=== PATIENT | male | born 1960 ===

== ENCOUNTER 2024-02-20 09:20 | Outpatient (REF) | payer MEDICAID, SELFPAY ==
[2024-02-20 11:16] LABS: MANUAL DIFF FLAG NO
[2024-02-20 11:25] LABS: Basophils Absolute Auto 0.1 X10*3/uL (0.0-0.2); Basophils Percent Auto 1.1 % (0-2); Eosinophils Absolute Auto 0.3 X10*3/uL (0.0-0.4); Hematocrit 40.7 % (42.0-52.0); Hemoglobin 13.3 g/dl (14.0-18.0); Imm Gran Abs Auto 0.02 X10*3/uL (0.00-0.03); Imm Gran Pct Auto 0.3 % (0.0-0.4); Lymphocytes Absolute Auto 1.6 X10*3/uL (1.2-4.9); Lymphocytes Percent Auto 25.6 % (20-40); Mean Corpuscular HGB Conc 32.7 g/dl (31.0-36.0); Mean Corpuscular Hemoglobin 26.7 pg (27.0-33.0); Mean Corpuscular Volume 81.7 fL (80.0-98.0); Mean Platelet Volume 10.5 fL (9.4-12.4); Monocytes Absolute Auto 0.5 X10*3/uL (0.1-1.2); Monocytes Percent Auto 8.1 % (2-11); Neutrophils Absolute Auto 3.8 x10*3/uL (2.0-8.3); Neutrophils Percent Auto 60.9 % (45-73); Platelet Count 541 X10*3/uL (160-400); Red Blood Count 4.98 X10*6/uL (4.60-5.80); Red Cell Distribution Width 15.5 % (11.0-16.0); White Blood Count 6.3 X10*3/uL (4.8-10.8)
[2024-02-20 11:42] LABS: Rheumatoid Factor < 13.0 IU/mL (<15.0)
[2024-02-20 11:45] LABS: Alanine Aminotransferase 67 U/L (0-40); Albumin Level 2.5 g/dL (3.5-5.0); Alkaline Phosphatase 171 U/L (39-117); Anion Gap 10 (12-20); Aspartate Amino Transferase 82 U/L (5-37); Bilirubin Direct 0.1 mg/dL (0.0-0.5); Bilirubin Total 0.3 mg/dL (0.0-1.0); Blood Urea Nitrogen 31 mg/dL (9-16); C Reactive Protein 0.61 mg/dL (< or = 0.50); Calcium 9.4 mg/dL (8.4-10.2); Carbon Dioxide 29 mmol/L (22-29); Chloride 104 mmol/L (96-108); Cholesterol 394 mg/dL (<200); Estimated Glomerular Filt Rate 50; Glucose Random 81 mg/dL (60-115); HDL Cholesterol 22 mg/dL (>40); LDL Cholesterol Calculated 295 mg/dL (<100); Potassium 4.3 mmol/L (3.3-5.1); Sodium 139 mmol/L (135-145); Total Protein 5.8 g/dL (6.5-8.0); Triglycerides 387 mg/dL (<150)
[2024-02-20 11:58] LABS: HIV AB/AG Nonreactive (Nonreactive); HIV Num 1 0.09 S/CO (0.00-0.99); ~HepC Num1 0.08 S/CO (0.00-0.79); ~Hepatitis C Antibody Nonreactive (Nonreactive)
[2024-02-20 12:03] LABS: Erythrocyte Sedimentation Rate 80 MM/HR (0-15)
[2024-02-20 12:04] LABS: TSH reflex Free T4 2.88 uIU/mL (0.32-4.0)
[2024-02-20 12:17] LABS: Folate 12.2 ng/mL (> or = 4.0); Vitamin B12 396 pg/mL (200-900)
[2024-02-21 16:54] LABS: Homocysteine 18.2 umol/L (<11.4)
[2024-02-22 12:03] LABS: Anti Nuclear Antibody Screen NEGATIVE (NEGATIVE)
[2024-02-24 15:09] LABS: Methylmalonic Acid 551 nmol/L (87-318)
== END 2024-02-20 09:21 | disposition home or self-care (01) ==
LOC: HO.HHCL 09:20
PROVIDERS: Visit Provider Internal Medicine
DX: Z11.4 Encounter for screening for human immunodeficiency virus [HIV] (principal); Z13.6 Encounter for screening for cardiovascular disorders; M79.2 Neuralgia and neuritis, unspecified
CPT/HCPCS: 36415; 80048; 80061; 80076; 82607; 82746; 83090; 83921; 84443; 85025; 85652; 86038; 86140; 86431; 86803; 87389

== ENCOUNTER 2024-02-24 12:22 | Outpatient (REF) | payer MEDICAID, SELFPAY ==
[2024-02-24 14:45] LABS: Iron 39 mcg/dL (45-160); Percent Iron Saturation 22 % (15-50); Total Iron Binding Capacity 177 mcg/dL (228-428); Unsaturated Iron Binding 138 ug/dL
[2024-02-24 14:47] LABS: Ferritin 829 ng/mL (20-250)
[2024-02-24 14:52] LABS: Vitamin B12 424 pg/mL (200-900)
[2024-02-28 13:33] LABS: Methylmalonic Acid 593 nmol/L (87-318)
== END 2024-02-24 12:23 | disposition home or self-care (01) ==
LOC: HO.HHCL 12:22
PROVIDERS: Visit Provider Internal Medicine
DX: D64.9 Anemia, unspecified (principal); E53.8 Deficiency of other specified B group vitamins
CPT/HCPCS: 36415; 82607; 82728; 82746; 83090; 83540; 83921

== ENCOUNTER 2024-03-07 14:20 | Outpatient (AMB) | payer MEDICAID, SELFPAY ==
--- NOTE | 2024-03-07 14:22 | HO.NEPHOV_ITS ---
HPI HPI Comments History of Present Illness Details 63 year old man with history of hyperten heather was recently hospitalized at [facility]. He had urinary retention and a Leija catheter was inserted. He has had Leija catheter for the last 3 weeks. He has been referred for chronic kidney disease. Recent creatinine was 1.4. Upon reviewing the labs his baseline is close to 1.4. He has a history of hypertension. He has been on lisinopril 30 mg and verapamil 240 mg. He was accompanied by his daughter today. Daughter tells me that she has not given the blood pressure medications for the last 3 days since his blood pressure has been running low. He has a follow-up appointment with urologist for a cystoscopy on March 13. Today he has no headache nausea or vomiting. No shortness of breath. No specific urinary complaints no hematuria. No edema. All other systems were reviewed [facility] Social History Use of substances other than those prescribed or required for medical reasons: No Vital Signs 03/07/24 14:25 Height 5 ft 5 in BP 78/52 L Blood Pressure Location Rt brachial Position Sitting Pulse 77 Pulse Source Pulse Oximeter Pulse Oximetry (%) 98 Oxygen Delivery Method Room Air Physical Exam Vital Signs: Last Vital Signs Pulse 77 03/07/24 14:25 BP 78/52 L 03/07/24 14:25 Pulse Ox 98 03/07/24 14:25 Oxygen Delivery Method Room Air 03/07/24 14:25 Const Other: In a wheelchair General: comfortable Nutritional Appearance: well nourished Orientation/consciousness: patient oriented x3 HEENT Head: No normal to inspection Mouth: moist mucous membranes Neck Neck: Yes supple and Yes no JVD Resp Auscultation: clear to auscultation bilaterally, no rales and rub present Cardio Jugular venous distension: no JVD Palpation: no palpable S3 and no palpable S4 Heart sounds: no rubs GI Palpation (GI): Soft to palpation and nontender Percussion: No Fluid wave present Other: Leija in place General: Yes no CVA tenderness Back/Spine/Pelvis Back: no CVA tenderness Skin General skin exam: no rashes or lesions noted Neuro General: patient oriented x3 Extrem General: Yes no pedal edema and No clubbing Assessment & Plan Assessment & Plan (1) CKD (chronic kidney disease): Code(s): N18.9 - Chronic kidney disease, unspecified Plan Quintin has chronic kidney disease stage 3 with a baseline creatinine of 1.4 mg/dL. 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 Recent urine study did not show any active sediments in therefore glomerular or interstitial disease seem unlikely. He could have had a component of obstructive uropathy during hospitalization. He has significant hypotension. Volume depletion could be a contributing factor. Recommendations Hold lisinopril and verapamil for now until blood pressure stabilizes. Encouraged him to increase fluid intake including Gatorade. Keep intake more than output. Keep Leija catheter for now and follow-up with Urology on March 13. Workup ordered for CKD including urine protein creatinine ratio. We will screen for comorbid conditions including anemia and secondary hyperparathyroidism. All his questions were answered [employer] Worker service was used. He will return to office in the next 3 weeks. Orders: Orders Total Protein Urine Random 2 Weeks N18.9 - Chronic kidney disease, unspecified Basic Metabolic Panel 2 Weeks N18.9 - Chronic kidney disease, unspecified Creatinine Urine 2 Weeks N05.9 - Unspecified nephritic syndrome with unspecified morphologic changes, N18.9 - Chronic kidney disease, unspecified Complete Blood Count Auto Diff 2 Weeks N18.30 - Chronic kidney disease, stage 3 unspecified, N18.9 - Chronic kidney disease, unspecified Parathyroid Hormone Intact 2 Weeks N18.9 - Chronic kidney disease, unspecified Coding Level of Care Code New Pt Level 5 (10112) Diagnoses CKD (chronic kidney disease) N18.9 Results Reviewed Nephrology Results: Hgb 13.3 g/dl (14.0-18.0) L 02/20/24 WBC 6.3 X10*3/uL (4.8-10.8) 02/20/24 Plt Count 541 X10*3/uL (160-400) H 02/20/24 Sodium 139 mmol/L (135-145) 02/20/24 Potassium 4.3 mmol/L (3.3-5.1) 02/20/24 Chloride 104 mmol/L (96-108) 02/20/24 Carbon Dioxide 29 mmol/L (22-29) 02/20/24 BUN 31 mg/dL (9-16) H 02/20/24 Creatinine 1.42 mg/dL (0.5-1.4) H 02/20/24 Calcium 9.4 mg/dL (8.4-10.2) 02/20/24
[2024-03-07 14:25] VITALS: BP 78/52; PULSE 77; O2SAT 98
== END 2024-03-07 14:47 | disposition home or self-care (01) ==
LOC: HO.HKAS 14:20
PROVIDERS: PCP Internal Medicine; Referring Provider Internal Medicine; Visit Provider Internal Medicine Hypertension Specialist
DX: I12.9 Hypertensive chronic kidney disease with stage 1 through stage 4 chronic kidney disease, or unspecified chronic kidney disease (principal); N18.9 Chronic kidney disease, unspecified
CPT/HCPCS: 99204

== ENCOUNTER → 2024-03-07 14:20 | Outpatient (BNVA) | payer MEDICAID, SELFPAY | PROVIDERS: PCP Internal Medicine; Referring Provider Internal Medicine; Visit Provider Internal Medicine Hypertension Specialist | DX: N18.9 Chronic kidney disease, unspecified (principal) | CPT/HCPCS: 99202 ==

== ENCOUNTER 2024-03-15 11:30 | Outpatient (AMB) | payer MEDICAID, SELFPAY ==
--- NOTE | 2024-03-15 11:32 | A.OFFVIS_ITS ---
Vital Signs 03/15/24 11:33 Height 5 ft 5 in BP 113/72 Blood Pressure Location Lt brachial Position Sitting Pulse 69 Intake Visit Reasons: RIH Intake Note: This patient presents for an assessment for right inguinal hernia. Pt c/o; right groin, reports constipation, reports bulge, reports neuropathy. Numerical Control Machine Operator Required: Yes Numerical Control Machine Operator Language: Still Pump Operator Name: Cheryl Accompanied by: Daughter Allergies No Known Allergies Allergy (Verified 03/07/24 14:24) Medication List - Last Reviewed 03/15/24 by PASHA Hamm acetaminophen ER 650 mg PO Q8H PRN cyanocobalamin (vitamin B-12) 100 mcg IM DAILY cyclobenzaprine 5 mg PO TID ferrous sulfate 325 mg PO Q OTHER DAY finasteride 5 mg PO DAILY gabapentin 600 mg PO TID metoprolol succinate ER 25 mg PO DAILY tamsulosin 0.4 mg PO BEDTIME thiamine HCl (vitamin B1) 50 mg PO DAILY tizanidine 4 mg PO Q8H PRN verapamil ER 240 mg PO DAILY HPI HPI RIH: Details: 63-year-old male referred for a right inguinal hernia. He has noticed this reducible mass on the right groin for over month now. He says that this seems to be much bigger whenever he is standing up. This seems to have increased in size over the year as well He describes significant discomfort with this hernia because of the size He has had a Leija catheter in place for the past month because of urinary retention from an enlarged prostate. He has following a urologist in [place] and he is supposed to have a procedure for his prostate He has had neuropathy well and has difficulty with ambulating because of balance. He denies any other GI issues [facility] Medical History Right inguinal hernia Hypertension Neuropathy BPH (benign prostatic hyperplasia) Review of Systems Const Denies chills and Denies fever(s) Card Denies chest pain, Denies dyspnea and Denies dyspnea on exertion Resp Denies cough, Denies dyspnea and Denies dyspnea on exertion GI Denies hematochezia and Denies change in bowel habits Denies hematuria and Denies difficulty urinating Musc Details: Frequent muscle cramps Reports abnormal gait, Reports back pain and Denies limited range of motion Neuro Details: Balance problems from neuropathy Reports abnormal gait, Denies focal weakness and Denies convulsions Psych Denies depression and Denies mood swings Physical Exam Vital Signs: Last Vital Signs Pulse 69 03/15/24 11:33 BP 113/72 03/15/24 11:33 Const Other: On wheelchair but able to stand up General: comfortable and no acute distress Orientation/consciousness: patient oriented x3 Neck Neck: Yes no lymphadenopathy Resp Auscultation: clear to auscultation bilaterally Cardio Rhythm: regular rhythm GI Other: Large right inguinal hernia, partially reducible Palpation (GI): Soft to palpation, nontender and no guarding Neuro General: patient oriented x3 Assessment & Plan Assessment & Plan (1) Right inguinal hernia: Code(s): K40.90 - Unilateral inguinal hernia, without obstruction or gangrene, not specified as recurrent Category: Medical Plan: He has a large right inguinal hernia, partially reducible. This has been bothering him vague symptoms because of the size. I explained to him the technique of repair with mesh placement. I reviewed the risks including but not limited to bleeding, infections, injury to bowel, vas deferens and testicle, recurrence, postop pain, as well as the benefits and alternatives. I explained to him what to expect postoperatively as well. He currently has problems with urinary retention due to BPH and has Leija catheter in place. Timing of this repair of the right inguinal hernia will therefore depend on when his prostate procedure will be. If the prostate procedure will not be done for a while, we can schedule him for repair of the right inguinal hernia with mesh prior to that. They will discuss this with his urologist and will call us about scheduling down the line. Coding Level of Care Code New Pt Level 3 (46046) Diagnoses Right inguinal hernia K40.90
[2024-03-15 11:33] VITALS: BP 113/72; PULSE 69
== END 2024-03-15 11:51 | disposition home or self-care (01) ==
PROVIDERS: PCP Internal Medicine; Visit Provider Surgery
DX: K40.90 Unilateral inguinal hernia, without obstruction or gangrene, not specified as recurrent (principal)
CPT/HCPCS: 99203

== ENCOUNTER → 2024-03-15 11:30 | Outpatient (BNVA) | payer MEDICAID, SELFPAY | PROVIDERS: Visit Provider Surgery | DX: K40.90 Unilateral inguinal hernia, without obstruction or gangrene, not specified as recurrent (principal) | CPT/HCPCS: 99202 ==

== ENCOUNTER 2024-03-21 11:15 | Outpatient (REF) | payer MEDICAID, SELFPAY ==
[2024-03-21 12:38] LABS: Basophils Absolute Auto 0.1 X10*3/uL (0.0-0.2); Basophils Percent Auto 1.2 % (0-2); Eosinophils Absolute Auto 0.1 X10*3/uL (0.0-0.4); Eosinophils Percent Auto 1.8 % (0-4); Hematocrit 39.6 % (42.0-52.0); Hemoglobin 13.1 g/dl (14.0-18.0); Imm Gran Abs Auto 0.02 X10*3/uL (0.00-0.03); Imm Gran Pct Auto 0.3 % (0.0-0.4); Lymphocytes Absolute Auto 2.1 X10*3/uL (1.2-4.9); Lymphocytes Percent Auto 27.5 % (20-40); Mean Corpuscular HGB Conc 33.1 g/dl (31.0-36.0); Mean Corpuscular Hemoglobin 26.9 pg (27.0-33.0); Mean Corpuscular Volume 81.3 fL (80.0-98.0); Mean Platelet Volume 10.3 fL (9.4-12.4); Monocytes Absolute Auto 0.6 X10*3/uL (0.1-1.2); Monocytes Percent Auto 7.2 % (2-11); Neutrophils Absolute Auto 4.8 x10*3/uL (2.0-8.3); Platelet Count 421 X10*3/uL (160-400); Red Blood Count 4.87 X10*6/uL (4.60-5.80); Red Cell Distribution Width 17.2 % (11.0-16.0); White Blood Count 7.7 X10*3/uL (4.8-10.8)
[2024-03-21 13:11] LABS: Anion Gap 12 (12-20); Blood Urea Nitrogen 22 mg/dL (9-16); Calcium 8.5 mg/dL (8.4-10.2); Carbon Dioxide 25 mmol/L (22-29); Chloride 99 mmol/L (96-108); Estimated Glomerular Filt Rate > 60; Glucose Random 90 mg/dL (60-115); Potassium 4.5 mmol/L (3.3-5.1); Sodium 131 mmol/L (135-145)
[2024-03-21 13:18] LABS: Parathyroid Hormone Intact 28.2 pg/mL (8.7-77.1)
[2024-03-21 13:47] LABS: Folate 11.9 ng/mL (> or = 4.0); Vitamin B12 > 2000 pg/mL (200-900)
[2024-03-24 15:53] LABS: Methylmalonic Acid 233 nmol/L (87-318)
== END 2024-03-21 11:16 | disposition home or self-care (01) ==
LOC: HO.HHCL 11:15
PROVIDERS: Internal Medicine Hypertension Specialist; Visit Provider Internal Medicine
DX: N18.9 Chronic kidney disease, unspecified (principal); N05.9 Unspecified nephritic syndrome with unspecified morphologic changes; N18.30 Chronic kidney disease, stage 3 unspecified; E53.8 Deficiency of other specified B group vitamins
CPT/HCPCS: 36415; 80048; 82607; 82746; 83090; 83921; 83970; 85025

== ENCOUNTER 2024-03-28 10:20 | Outpatient (AMB) | payer MEDICAID, SELFPAY ==
--- NOTE | 2024-03-28 10:27 | A.OFFVIS_ITS ---
Vital Signs 03/28/24 10:38 Height 5 ft 5 in Weight 140 lb BMI 23.3 BP 98/70 Blood Pressure Location Lt brachial Position Sitting Respiration 14 Pulse 72 Pulse Source Pulse Oximeter Pulse Oximetry (%) 97 Oxygen Delivery Method Room Air Intake Visit Reasons: chronic bilateral low back/ thoracic pain, neck Intake Note: Patient was accompanied by?daughter Jacqueline, comes in for initial visit was referred by primary care. Reports pain 10/10. ? Allergies No Known Allergies Allergy (Verified 03/28/24 10:29) HPI Comments Details: Quintin is very unfortunate Micronesian-speaking 63 years old gentleman who presents in my office with complains on pain all over the body. He reports pain in bilateral arms pain in the abdomen pain in the entire back pain in the bilateral lower extremities. He does not remember when his pain started. He reports his pain is 10/10. He can not sleep normally because of his pain can not do activities of daily living he can not take care of himself he can not function normally. He is wheelchair-bound and he has indwelling urinary catheter. He reports that cold weather and cold application aggravate his pain. He was referred to this office by primary care physician urgent care at [facility]. He was prescribed tizanidine 4 mg 3 times a day and he reports some pain relief on tizanidine. He also was prescribed gabapentin 300 mg and he reports gabapentin does not help his pain. He is also taking ferrous sulfate because of the anemia. His past medical history significant for hypertension however recently he is started to become hypotensive and had syncope. Hypertensive medications were stopped. He does not know why he is wearing indwelling urinary catheter. He is very poor historian. He reports that he had collection of the urine in the area of his stomach. After that he was given the indwelling catheter. There is a possibility that this patient is suffering from neurogenic bladder and his actual problem is in the spinal cord. There is no information about his conditions from his urologist. If his problem only in the urinary tract than indwelling catheter should be replaced by some sort of a procedures. He reports that he had a sepsis in the past. He also reports that he is under observation of building principal and his kidney function is 50% of normal. He reports that he had some images of the spine but never MRI. I think it is very important to send him for the MRI of the lumbar spine as well as possibly thoracic spine if lumbar spine would not show any significant changes. We decided today that I will schedule him for new appointment after MRI is stella meyer. We also will obtain information from his urologist as well as from Dr. Sevilla from [facility] about his conditions. [facility] Medical History Right inguinal hernia Hypertension Neuropathy BPH (benign prostatic hyperplasia) Review of Systems Const All systems reviewed & are unremarkable except as noted in HPI and below Physical Exam Vital Signs: Last Vital Signs Pulse 72 03/28/24 10:38 Resp 14 03/28/24 10:38 BP 98/70 03/28/24 10:38 Pulse Ox 97 03/28/24 10:38 Oxygen Delivery Method Room Air 03/28/24 10:38 BMI result Body Mass Index 23.3 Const Other: On wheelchair but able to stand up General: comfortable and no acute distress Orientation/consciousness: patient oriented x3 Neck Neck: Yes no lymphadenopathy Resp Effort & Inspection: normal respiratory effort, able to speak in complete sentences, normal respiratory pattern, no audible wheezes, no cough, respiratory effort not decreased and no grunting Auscultation: clear to auscultation bilaterally Cardio Jugular venous distension: no JVD Rhythm: regular rhythm GI Other: Large right inguinal hernia, partially reducible General: Yes CVA tenderness Back/Spine/Pelvis Back: CVA tenderness Cervical Spine: cervical ROM normal Thoracic/Lumbar Spine: thoracic and lumbar spine normal to inspection Neuro General: patient oriented x3 Assessment & Plan Assessment & Plan (1) Neuropathy: Code(s): G62.9 - Polyneuropathy, unspecified Category: Medical (2) Neurogenic bladder: Code(s): N31.9 - Neuromuscular dysfunction of bladder, unspecified Category: Medical (3) Spinal stenosis: Code(s): M48.00 - Spinal stenosis, site unspecified Category: Medical Plan It is unclear to me why this patient has widespread pain however what makes me think about spinal changes is that his urinary retention might be from neurogenic bladder. I will send him for MRI of the lumbar spine. If this will show nothing I will send him for MRI of the thoracic spine as well. He is on tizanidine 4 mg t.i.d. and he reports that tizanidine helps his pain. The nature of his condition is still obscure to me. He has history of sepsis and history of anemia and he has B12 deficiency. After all his pain might be neuropathic in nature. But I would like to remove red flags 1st. Orders: Orders MR lumbar spine wo con Today G62.9 - Polyneuropathy, unspecified, M48.00 - Spinal stenosis, site unspecified, N31.9 - Neuromuscular dysfunction of bladder, unspecified Patient Instructions: I here by testify that I spent 45 minutes in conversation with this patient as well as evaluating his prior records and organizing this note. lead cargoman Jessica who is fluent in Micronesian and certified translator and interpreter help me to interpret this conversation in Micronesian. Coding Level of Care Code New Pt Level 4 (54250) Diagnoses Neuropathy G62.9 Neurogenic bladder N31.9 Spinal stenosis M48.00
[2024-03-28 10:38] VITALS: BP 98/70; PULSE 72; RESP 14; O2SAT 97; BMI 23.3
== END 2024-03-28 11:08 | disposition home or self-care (01) ==
PROVIDERS: PCP Internal Medicine; Referring Provider Internal Medicine; Visit Provider Anesthesiology
DX: G62.9 Polyneuropathy, unspecified (principal); N31.9 Neuromuscular dysfunction of bladder, unspecified; M48.00 Spinal stenosis, site unspecified
CPT/HCPCS: 99204

== ENCOUNTER → 2024-03-28 10:20 | Outpatient (BNVA) | payer MEDICAID, SELFPAY | PROVIDERS: PCP Internal Medicine; Visit Provider Anesthesiology | DX: M54.50 Low back pain, unspecified (principal); M54.6 Pain in thoracic spine; M54.2 Cervicalgia; M48.00 Spinal stenosis, site unspecified; G89.29 Other chronic pain; G62.9 Polyneuropathy, unspecified; N31.9 Neuromuscular dysfunction of bladder, unspecified | CPT/HCPCS: 99202 ==

== ENCOUNTER → 2024-04-04 11:33 | Outpatient (BNVA) | payer MEDICAID, SELFPAY | PROVIDERS: PCP Internal Medicine; Visit Provider Internal Medicine Hypertension Specialist | DX: I12.9 Hypertensive chronic kidney disease with stage 1 through stage 4 chronic kidney disease, or unspecified chronic kidney disease (principal); N18.9 Chronic kidney disease, unspecified | CPT/HCPCS: 99212 ==

== ENCOUNTER 2024-04-04 11:37 | Outpatient (AMB) | payer MEDICAID, SELFPAY ==
--- NOTE | 2024-04-04 11:33 | HO.NEPHOV ---
Vital Signs 04/04/24 11:35 Height 5 ft 5 in Weight 140 lb BMI 23.3 BP 52/40 L Blood Pressure Location Lt brachial Position Sitting Pulse 61 Pulse Source Pulse Oximeter Pulse Oximetry (%) 97 Oxygen Delivery Method Room Air Intake Visit Reasons: follow up Change Coordinator Required: Yes Accompanied by: Daughter Allergies No Known Allergies Allergy (Verified 04/04/24 11:35) HPI Comments Details: 63 year old man with history of hypertension was recently hospitalized at [facility]. He had urinary retention and a Leija catheter was inserted. He has had Leija catheter for the last 3 weeks. He has been referred for chronic kidney disease. Recent creatinine was 1.4. Upon reviewing the labs his baseline is close to 1.4. He has a history of hypertension. He has been on lisinopril 30 mg and verapamil 240 mg. He was accompanied by his daughter today. Daughter tells me that she has not given the blood pressure medications for the last 3 days since his blood pressure has been running low. He has a follow-up appointment with urologist for a cystoscopy on March 13. Today he has no headache nausea or vomiting. No shortness of breath. No specific urinary complaints no hematuria. No edema. All other systems were reviewed [facility] Medical History Right inguinal hernia Hypertension Neuropathy BPH (benign prostatic hyperplasia) Physical Exam Vital Signs: Last Vital Signs Pulse 61 04/04/24 11:35 BP 52/40 L 04/04/24 11:35 Pulse Ox 97 04/04/24 11:35 Oxygen Delivery Method Room Air 04/04/24 11:35 BMI result Body Mass Index 23.3 Const Other: In a wheelchair General: comfortable Nutritional Appearance: well nourished Orientation/consciousness: patient oriented x3 HEENT Head: No normal to inspection Mouth: moist mucous membranes Neck Neck: Yes supple and Yes no JVD Resp Auscultation: clear to auscultation bilaterally, no rales and rub present Cardio Jugular venous distension: no JVD Palpation: no palpable S3 and no palpable S4 Heart sounds: no rubs GI Palpation (GI): Soft to palpation and nontender Percussion: No Fluid wave present Other: Leija in place General: Yes no CVA tenderness Back/Spine/Pelvis Back: no CVA tenderness Skin General skin exam: no rashes or lesions noted Neuro General: patient oriented x3 Extrem General: Yes no pedal edema and No clubbing Results Reviewed Nephrology Results: Hgb 13.1 g/dl (14.0-18.0) L 03/21/24 WBC 7.7 X10*3/uL (4.8-10.8) 03/21/24 Plt Count 421 X10*3/uL (160-400) H 03/21/24 Sodium 131 mmol/L (135-145) L 03/21/24 Potassium 4.5 mmol/L (3.3-5.1) 03/21/24 Chloride 99 mmol/L (96-108) 03/21/24 Carbon Dioxide 25 mmol/L (22-29) 03/21/24 BUN 22 mg/dL (9-16) H 03/21/24 Creatinine 0.75 mg/dL (0.5-1.4) 03/21/24 Calcium 8.5 mg/dL (8.4-10.2) 03/21/24 PTH Intact 28.2 pg/mL (8.7-77.1) 03/21/24 Assessment & Plan Assessment & Plan (1) CKD (chronic kidney disease): Code(s): N18.9 - Chronic kidney disease, unspecified Category: Medical (2) Hypertension: Code(s): I10 - Essential (primary) hypertension Category: Medical Plan Quintin has chronic kidney disease stage 3 with a baseline creatinine of 1.4 mg/dL. 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 Recent urine study did not show any active sediments in therefore glomerular or interstitial disease seem unlikely. He had a component of obstructive uropathy during hospitalization. He has significant hypotension. Recommendations No need for Lisinopril Hold verapamil for now until blood pressure stabilizes. Encouraged him to increase fluid intake including Gatorade. Keep intake more than output. Keep Leija catheter for now and follow-up with Urology - WAITING FOR SURGERY( March) We will screen for comorbid conditions including anemia and secondary hyperparathyroidism. All his questions were answered Change Coordinator service was used. He will return to office in the next 3 MONTHS Orders: Orders Basic Metabolic Panel 3 Months I10 - Essential (primary) hypertension Coding Level of Care Code Est Pt Level 4 (94238) Diagnoses CKD (chronic kidney disease) N18.9 Hypertension I10
[2024-04-04 11:35] VITALS: BP 52/40; PULSE 61; O2SAT 97; BMI 23.3
== END 2024-04-04 11:52 | disposition home or self-care (01) ==
PROVIDERS: PCP Internal Medicine; Supervising Provider Internal Medicine; Visit Provider Internal Medicine Hypertension Specialist
DX: I12.9 Hypertensive chronic kidney disease with stage 1 through stage 4 chronic kidney disease, or unspecified chronic kidney disease (principal); N18.9 Chronic kidney disease, unspecified
CPT/HCPCS: 99214

== ENCOUNTER 2024-04-09 11:31 | Outpatient (REF) | payer MEDICAID, SELFPAY ==
--- NOTE | ~2024-04-09 | XR_ITS ---
EXAMINATION: XR THORACIC SPINE XR LUMBAR SPINE CLINICAL INFORMATION: Pain. COMPARISON: None available. TECHNIQUE: 3 views of the thoracic spine. 3 views of the lumbar spine. THORACIC SPINE: Degenerative changes between the anterior arch of C1 and the odontoid. Moderate multilevel degenerative changes in the thoracic spine with anterior osteophytes. LUMBAR SPINE: Mild dextroscoliosis of the lumbar spine. Straightening of the normal lumbar lordosis. Facet arthritis in the lower lumbar spine. Atherosclerotic aortoiliac calcifications. Osteitis pubis. Small pelvic calcifications are likely vascular. A 1.3 cm oval density in the left upper quadrant possibly representing ingested material/pill versus calcification. Correlation with clinical exam recommended. Moderate multilevel lumbar spondylosis. XR/XR thoracic spine 2V IMPRESSION: 1. Moderate multilevel degenerative changes in the thoracic spine. 2. Moderate multilevel lumbar spondylosis. 3. A 1.3 cm oval density in the left upper quadrant possibly representing ingested material/pill versus calcification. Correlation with clinical exam recommended.
--- NOTE | ~2024-04-09 | XR_ITS ---
EXAMINATION: XR THORACIC SPINE XR LUMBAR SPINE CLINICAL INFORMATION: Pain. COMPARISON: None available. TECHNIQUE: 3 views of the thoracic spine. 3 views of the lumbar spine. THORACIC SPINE: Degenerative changes between the anterior arch of C1 and the odontoid. Moderate multilevel degenerative changes in the thoracic spine with anterior osteophytes. LUMBAR SPINE: Mild dextroscoliosis of the lumbar spine. Straightening of the normal lumbar lordosis. Facet arthritis in the lower lumbar spine. Atherosclerotic aortoiliac calcifications. Osteitis pubis. Small pelvic calcifications are likely vascular. A 1.3 cm oval density in the left upper quadrant possibly representing ingested material/pill versus calcification. Correlation with clinical exam recommended. Moderate multilevel lumbar spondylosis. XR/XR lumbar spine 2-3V IMPRESSION: 1. Moderate multilevel degenerative changes in the thoracic spine. 2. Moderate multilevel lumbar spondylosis. 3. A 1.3 cm oval density in the left upper quadrant possibly representing ingested material/pill versus calcification. Correlation with clinical exam recommended.
== END 2024-04-09 11:32 | disposition home or self-care (01) ==
LOC: HO.XRAY 11:31
PROVIDERS: PCP Internal Medicine; Visit Provider Internal Medicine
DX: M54.50 Low back pain, unspecified (principal); G89.29 Other chronic pain
CPT/HCPCS: 72070; 72100

== ENCOUNTER 2024-04-23 09:56 | Outpatient (REF) | payer MEDICAID, SELFPAY ==
[2024-04-23 11:25] LABS: MANUAL DIFF FLAG NO
[2024-04-23 12:10] LABS: Basophils Absolute Auto 0.1 X10*3/uL (0.0-0.2); Basophils Percent Auto 1.2 % (0-2); Eosinophils Absolute Auto 0.4 X10*3/uL (0.0-0.4); Eosinophils Percent Auto 4.1 % (0-4); Hematocrit 45.3 % (42.0-52.0); Hemoglobin 14.9 g/dl (14.0-18.0); Imm Gran Abs Auto 0.03 X10*3/uL (0.00-0.03); Imm Gran Pct Auto 0.3 % (0.0-0.4); Lymphocytes Absolute Auto 1.8 X10*3/uL (1.2-4.9); Lymphocytes Percent Auto 19.6 % (20-40); Mean Corpuscular HGB Conc 32.9 g/dl (31.0-36.0); Mean Corpuscular Hemoglobin 26.5 pg (27.0-33.0); Mean Corpuscular Volume 80.6 fL (80.0-98.0); Mean Platelet Volume 11.1 fL (9.4-12.4); Monocytes Absolute Auto 0.6 X10*3/uL (0.1-1.2); Monocytes Percent Auto 5.9 % (2-11); Neutrophils Absolute Auto 6.5 x10*3/uL (2.0-8.3); Neutrophils Percent Auto 68.9 % (45-73); Platelet Count 410 X10*3/uL (160-400); Red Blood Count 5.62 X10*6/uL (4.60-5.80); Red Cell Distribution Width 17.9 % (11.0-16.0); White Blood Count 9.4 X10*3/uL (4.8-10.8)
== END 2024-04-23 09:57 | disposition home or self-care (01) ==
LOC: HO.HHCL 09:56
PROVIDERS: Visit Provider Family Medicine
DX: Z01.818 Encounter for other preprocedural examination (principal)
CPT/HCPCS: 36415; 85025

== ENCOUNTER 2024-05-14 09:01 | Outpatient (AMB) | payer MEDICAID, SELFPAY ==
[2024-05-14 09:03] VITALS: BP 112/60
--- NOTE | 2024-05-14 09:03 | A.OFFVIS_ITS ---
Vital Signs 05/14/24 09:03 Height 5 ft BP 112/60 Blood Pressure Location Lt brachial Position Supine Intake Visit Reasons: Chronic Bilateral thoracic back pain/CM Intake Note: New pt presents today with complaints of back pain for approx 2 years. Clean Room Technician Required: Yes Clean Room Technician Language: Shipfitter Apprentice Name: Yariel Barlow [id number] Accompanied by: Daughter Allergies No Known Allergies Allergy (Verified 05/14/24 09:07) Medication List - Last Reconciled 05/14/24 by Maricel Moy MD acetaminophen ER 650 mg PO Q8H PRN cyanocobalamin (vitamin B-12) 100 mcg IM DAILY cyclobenzaprine 5 mg PO TID ferrous sulfate 325 mg PO Q OTHER DAY finasteride 5 mg PO DAILY gabapentin 600 mg PO TID metoprolol succinate ER 25 mg PO DAILY tamsulosin 0.4 mg PO BEDTIME thiamine HCl (vitamin B1) 50 mg PO DAILY tizanidine 4 mg PO Q8H PRN verapamil ER 240 mg PO DAILY HPI Comments Details: This is a 63-year-old male who is transferred from rehab for evaluation. Patient stated that he has had pain in his upper back, muscular pain in his chest, back, shoulders, ribs for about a year -a year and a half. He does not recall any specific treatment for this pain. Over the last 4 months patient has been having prostate issues he has had a Leija catheter for about 4 months now. According to his daughter, He was admitted to [facility] about 2 months ago for approximately 17 days and was found to have urosepsis and was given antibiotics, over the last few months patient was found to have significant proteinuria and he had a kidney biopsy 2 weeks ago daughter states that he was supposed to have a urologic procedure but he was not cleared due to cardiac concerns patient was discharged to rehab due to generalized weakness and pain. patient denies having any significant pain or swelling of his hands, knees, elbows, wrists, ankles, feet. Denies any skin rashes. He is unaware of any family history of an autoimmune rheumatic disease. Denies history of psoriasis. Denies history suggestive of uveitis. [facility] Medical History Right inguinal hernia Hypertension Neuropathy BPH (benign prostatic hyperplasia) Social History Patient Tobacco Use Status: Former Tobacco user Review of Systems Const Reports lethargy, Reports weakness and Reports weight loss Musc Reports back pain, Reports arthralgias and Denies joint swelling Skin/Breast Denies rash Neuro Reports weakness Physical Exam Vital Signs: Last Vital Signs BP 112/60 05/14/24 09:03 Const Other: Patient is on the stretcher General: tired appearing Nutritional Appearance: cachectic, malnourished and Edematous Orientation/consciousness: oriented to person and oriented to place HEENT Mouth: moist mucous membranes Resp Effort & Inspection: normal respiratory effort and able to speak in complete sentences Neuro General: oriented to person and oriented to place Extrem Other: Bilateral lower limb pitting edema extending above the knees No active synovitis Normal nailfold capillaroscopy No psoriasis rashes Normal range of motion of hands, wrists, elbows, shoulders without pain No knee pain with full flexion-extension General: Yes edema Assessment & Plan Assessment & Plan (1) Low back pain, unspecified: Code(s): M54.50 - Low back pain, unspecified Category: Medical Qualifiers: Chronicity: chronic Back pain laterality: bilateral Sciatica presence: unspecified whether sciatica present Qualified Code(s): M54.50 - Low back pain, unspecified; G89.29 - Other chronic pain Plan: This is a 63-year-old male who presents for evaluation of chronic pains. He is transferred from rehab on the stretcher. I do not see any signs of an autoimmune rheumatic disease. I suggest following up with his other specialists such as neurology, pain management, urology and nephrology. Plan I spent 36 minutes reviewing patient's chart, evaluating patient, counseling patient and documenting in the chart Coding Level of Care Code New Pt Level 3 (01319) Diagnoses Chronic bilateral low back pain, unspecified whether sciatica present M54.50; G89.29 Chronicity: chronic Back pain laterality: bilateral Sciatica presence: unspecified whether sciatica present
== END 2024-05-14 09:46 | disposition home or self-care (01) ==
LOC: HO.RHE 09:01
PROVIDERS: PCP Internal Medicine; Visit Provider Student in an Organized Health Care Education/Training Program
DX: M54.50 Low back pain, unspecified (principal); G89.29 Other chronic pain
CPT/HCPCS: 99203

== ENCOUNTER → 2024-05-14 09:01 | Outpatient (BNVA) | payer MEDICAID, SELFPAY | PROVIDERS: PCP Internal Medicine; Visit Provider Student in an Organized Health Care Education/Training Program | DX: G89.29 Other chronic pain (principal); M54.50 Low back pain, unspecified | CPT/HCPCS: 99202 ==